=== PATIENT | female | born 1985 | race Caucasian/White ===

== ENCOUNTER 2017-06-18 11:31 | Emergency (ER) | payer MEDICAID ==
[~2017-06-18] VITALS: Ht 154.9 cm; Wt 58.6 kg
[~2017-06-18 11:31] MED LIST: AZIT250T94 PO; IBUP-1542 PO; NPH10OT LEFT EAR; PRENAT PO; PROM6.25 PO
[2017-06-18 12:21] VITALS: Ht 154.9 cm; Wt 58.6 kg
[2017-06-18 14:16] LABS: URINE BLOOD (Dip) POC 3+ (NEGATIVE)
[2017-06-18 14:41] LABS: BASOPHILS % 0.6 % (0.0-2.0); EOSINOPHILS # 0.1 10^3/ul (0.0-0.5); HEMATOCRIT 34.5 % (37.0-47.0); HEMOGLOBIN 12.1 g/dl (12.0-16.0); LYMPHOCYTES # 2.2 10^3/ul (0.8-2.9); LYMPHOCYTES % 33.5 % (15.0-51.0); MEAN CORPUSCULAR HEMOGLOBIN 30.4 pg (29.0-33.0); MEAN CORPUSCULAR HGB CONC 35.1 g/dl (32.0-37.0); MEAN CORPUSCULAR VOLUME 86.7 fl (82.0-101.0); MONOCYTE # 0.3 10^3/ul (0.3-0.9); MONOCYTES % 4.8 % (0.0-11.0); NEUTROPHIL # 3.9 10^3/ul (1.6-7.5); NEUTROPHILS % 58.8 % (39.0-77.0); PLATELET COUNT 317 10^3/UL (140-415); RED BLOOD COUNT 3.98 10^6/ul (4.20-5.40); RED CELL DISTRIBUTION WIDTH 11.9 % (11.5-14.5); WHITE BLOOD COUNT 6.7 10^3/ul (4.8-10.8)
[2017-06-18 14:48] LABS: ADD UMIC YES; UR ASCORBIC ACID NEGATIVE (NEGATIVE); UR BILIRUBIN (Dip) NEGATIVE (NEGATIVE); UR BLOOD (Dip) 3+ mg/dL (NEGATIVE); UR CLARITY CLEAR (CLEAR); UR COLOR STRAW (YELLOW); UR GLUCOSE (Dip) NEGATIVE (NEGATIVE); UR KETONES (Dip) NEGATIVE (NEGATIVE); UR LEUKOCYTE ESTERASE (Dip) NEGATIVE Leu/ul (NEGATIVE); UR NITRITE (Dip) NEGATIVE (NEGATIVE); UR RBC 1 /HPF (0-5); UR SPECIFIC GRAVITY (Dip) 1.005 (1.003-1.030); UR TOTAL PROTEIN (Dip) NEGATIVE (NEGATIVE); UR UROBILINOGEN (Dip) NEGATIVE (NEGATIVE)
--- NOTE | 2017-06-18 15:01 | RADRPT ---
PROCEDURE: OB Ultrasound. CLINICAL INDICATION: Positive test. Vaginal bleeding. TECHNIQUE: Ultrasound of the pelvis was performed with transabdominal and transvaginal sonography in the axial and sagittal planes. COMPARISON: No prior study is available for comparison. FINDINGS: There is a single intrauterine gestational sac. pole is visualized with no heart motion seen. Yolk sac is visualized but probably enlarged. Mean sac diameter is 1.62 cm. Menstrual age by ultrasound dates is 6 weeks 0 days. This indicates an expected date of delivery of 02/11/2018. The right ovary appears normal measuring 2.8 x 1.0 x 2.3 cm. The left ovary appears normal measuring 4.2 x 2.8 x 2.1 cm. Color Doppler and pulsed Doppler sonography demonstrate normal flow to the ovaries. There is no other pelvic mass or free fluid. IMPRESSION: 1. Single intrauterine gestation with no heart motion visualized. This may be due to early ge stational age or failed . Follow-up ultrasound in 10 days is advised. 2. Menstrual age by ultrasound dates is 6 weeks 0 days. RPTAT: QQ .Munir Nicole MD, MD Date Time Electronically viewed and signed by .Munir Nicole MD, on 06/18/2017 15:01 .R/
--- NOTE | 2017-06-18 17:03 | ERD ---
ER Documentation Chief Complaint Chief Complaint 7 wks preg vag bleed; pelvic & back pain starting yesterday HPI This is a 31-year-old female presents to the ER with vaginal bleeding that started today. Patient is also complaining of pelvic and back pain. Patient is currently 7 weeks . Patient is only using panty liners as bleeding is very light. Denies any fevers or chills. She denies any urinary frequency or dysuria. ROS 12 point review of systems was done, all negative except per HPI.. Medications Home Meds Active Scripts Ibuprofen* (Motrin*) 600 Mg Tab, 600 MG PO Q6H Y for PAIN, #14 TAB Prov:MANUEL SHAW MD 09/09/15 Promethazine w/Codeine* (Phenergan w/Codeine* Syrup) 5 Ml Syrup, 5 ML PO Q4H Y for COUGH for 5 Days, ML 6 oz Prov:MANUEL SHAW MD 09/09/15 Azithromycin* (Zithromax*) 250 Mg Tablet, 250 MG PO .ZPACK DIRECTED, #6 TAB TAKE 500 MG (2 TABS) THE FIRST DAY THEN 250 MG (1 TAB) DAYS 2-5 Prov:MANUEL SHAW MD 09/09/15 Neomycin/Polymyxin/Hydrocort* (Cortisporin* Otic) 10 Ml Susp, 4 DROP LEFT EAR QID for 7 Days, EA Prov:SANTIAGO GAR DRIVER 08/04/15 Reported Medications Multivit/Min/Fol Ac/Iron/Pren* ( S*) 1 Tab Tab, 1 TAB PO DAILY, TAB 06/22/14 Allergies Allergies: Coded Allergies: No Known Allergy (Verified , 08/04/15) PMhx/Soc Medical and Surgical Hx: pt denies Medical Hx, pt denies Surgical Hx Hx Respiratory Disorders: Yes (asthma) Hx Alcohol Use: No Hx Substance Use: No Hx Tobacco Use: No Smoking Status: Never smoker Physical Exam Vitals Vital Signs Date Time Temp Pulse Resp B/P Pulse Ox O2 Delivery O2 Flow Rate FiO2 06/18/17 12:21 97.7 58 18 155/55 100 Physical Exam GENERAL: The patient is well developed and appropriate for usual state of health , in no apparent distress. HEENT: Atraumatic. Conjunctivae are pink. Pupils equal, round, and reactive to light. Extraocular muscles are grossly intact. Bilateral tympanic membranes are clear with no evidence of erythema, effusion or dulling of the light reflex. The oropharynx is clear with no erythema or exudates. NECK: C-spine is soft and supple. There is no cervical lymphadenopathy. CHEST: Clear to auscultation bilaterally. There are no rales, wheezes or rhonchi. HEART: Regular rate and rhythm. No murmurs, clicks, rubs or gallops. ABDOMEN: Soft, nontender and nondistended. Good bowel sounds. No rebound or guarding. No gross peritonitis. No gross organomegaly or masses. No Forrest sign or McBurney point tenderness. BACK: No midline or flank tenderness. EXTREMITIES: Equal pulses bilaterally. There is no peripheral clubbing, cyanosis or edema. No focal swelling or erythema. Full range of motion. Grossly neurovascularly intact. NEURO: Alert and oriented. Cranial nerves II through XII are intact. Motor strength in all 4 extremities with 5/5 strength. Sensation grossly intact. Normal speech and gait. SKIN: There is no apparent rash or petechia. The skin is warm and dry. Result Diagram: 06/18/17 1417 Results 24 hrs Laboratory Tests Test 06/18/17 14:16 06/18/17 14:17 Bedside Urine pH (LAB) 5.0 Bedside Urine Protein (LAB) Negative Bedside Urine Glucose (UA) Negative Bedside Urine Ketones (LAB) Negative Bedside Urine Blood 3+ Bedside Urine Nitrite (LAB) Negative Bedside Urine Leukocyte Esterase (L Negative White Blood Count 6.710^3/ul Red Blood Count 3.9810^6/ul Hemoglobin 12.1g/dl Hematocrit 34.5% Mean Corpuscular Volume 86.7fl Mean Corpuscular Hemoglobin 30.4pg Mean Corpuscular Hemoglobin Concent 35.1g/dl Red Cell Distribution Width 11.9% Platelet Count 08632^3/UL Mean Platelet Volume 9.0fl Neutrophils % 58.8% Lymphocytes % 33.5% Monocytes % 4.8% Eosinophils % 2.0% Basophils % 0.6% Nucleated Red Blood Cells % 0.0/100WBC Neutrophils # 3.910^3/ul Lymphocytes # 2.210^3/ul Monocytes # 0.310^3/ul Eosinophils # 0.110^3/ul Basophils # 0.010^3/ul Nucleated Red Blood Cells # 0.010^3/ul Urine Color STRAW Urine Clarity CLEAR Urine pH 6.0 Urine Specific Triangle 1.005 Urine Ketones NEGATIVEmg/dL Urine Nitrite NEGATIVEmg/dL Urine Bilirubin NEGATIVEmg/dL Urine Urobilinogen NEGATIVEmg/dL Urine Leukocyte Esterase NEGATIVELeu/ul Urine Microscopic RBC 1/HPF Urine Microscopic WBC 2/HPF Urine Hemoglobin 3+mg/dL Urine Glucose NEGATIVEmg/dL Urine Total Protein NEGATIVEmg/dl Beta HCG, Quantitative 3575.8mIU/ml Procedures/MDM Differential diagnosis: Threatened , missed , incomplete , ectopic , molar , UTI, pyelonephritis. Patient at this time may be having a threatened , there is an intrauterine however there is no heart tones. It may be too early to see them, versus failed . Patient is hemodynamically stable and afebrile and well-appearing. Patient needs to follow-up with her [facility] soon as possible and will return to ER sooner if symptoms worsen. My medical decision making was shared with the patient she understands and agrees with plan. Departure Diagnosis: Primary Impression: Threatened Condition: Stable Patient Instructions: Possible Miscarriage (Threatened ) Additional Instructions: Call your primary care doctor TOMORROW for an appointment during the next 1-2 days.See the doctor sooner or return here if your condition worsens before your appointment time. CASIMIRO WATT Jun 18, 2017 17:03
[2017-06-19] MEDS ORDERED: HYDR-906 PO (21:53)
[2017-06-19] MEDS ORDERED: ACET500C5 PO (21:53)
== END 2017-06-18 15:51 | disposition home or self-care (01) ==
LOC: FTE 11:31
DX: O20.0 Threatened abortion (principal); O99.511 Diseases of the respiratory system complicating pregnancy, first trimester; J45.909 Unspecified asthma, uncomplicated
CPT/HCPCS: 36415; 76801; 76817; 81001; 84702; 85025; 86900; 86901; Z7502; 81003

== ENCOUNTER 2017-06-19 18:41 | Emergency (ER) | payer MEDICAID ==
[~2017-06-19] VITALS: Ht 152.4 cm; Wt 58.6 kg
[2017-06-19 18:44] VITALS: Ht 152.4 cm; Wt 58.6 kg
[2017-06-19] MEDS ORDERED: ACETAMINOPHEN 500 MG TAB PO STA (19:34)
[2017-06-19 20:09] LABS: BASOPHIL # 0.1 10^3/ul (0.0-0.1); BASOPHILS % 0.5 % (0.0-2.0); EOSINOPHILS # 0.1 10^3/ul (0.0-0.5); EOSINOPHILS % 1.1 % (0.0-7.0); HEMATOCRIT 34.3 % (37.0-47.0); HEMOGLOBIN 12.4 g/dl (12.0-16.0); LYMPHOCYTES # 3.1 10^3/ul (0.8-2.9); LYMPHOCYTES % 29.5 % (15.0-51.0); MEAN CORPUSCULAR HEMOGLOBIN 30.4 pg (29.0-33.0); MEAN CORPUSCULAR HGB CONC 36.2 g/dl (32.0-37.0); MEAN CORPUSCULAR VOLUME 84.1 fl (82.0-101.0); MONOCYTE # 0.5 10^3/ul (0.3-0.9); NEUTROPHIL # 6.7 10^3/ul (1.6-7.5); NEUTROPHILS % 63.5 % (39.0-77.0); PLATELET COUNT 338 10^3/UL (140-415); RED BLOOD COUNT 4.08 10^6/ul (4.20-5.40); RED CELL DISTRIBUTION WIDTH 11.7 % (11.5-14.5); WHITE BLOOD COUNT 10.5 10^3/ul (4.8-10.8)
[2017-06-19 20:10] LABS: ADD UMIC YES; UR ASCORBIC ACID NEGATIVE (NEGATIVE); UR BILIRUBIN (Dip) NEGATIVE (NEGATIVE); UR BLOOD (Dip) 2+ mg/dL (NEGATIVE); UR CLARITY CLEAR (CLEAR); UR COLOR YELLOW (YELLOW); UR GLUCOSE (Dip) NEGATIVE (NEGATIVE); UR KETONES (Dip) NEGATIVE (NEGATIVE); UR LEUKOCYTE ESTERASE (Dip) NEGATIVE Leu/ul (NEGATIVE); UR NITRITE (Dip) NEGATIVE (NEGATIVE); UR RBC 13 /HPF (0-5); UR SPECIFIC GRAVITY (Dip) 1.006 (1.003-1.030); UR TOTAL PROTEIN (Dip) NEGATIVE (NEGATIVE); UR UROBILINOGEN (Dip) NEGATIVE (NEGATIVE)
--- NOTE | 2017-06-19 20:30 | RADRPT ---
PROCEDURE: OB Ultrasound. CLINICAL INDICATION: Positive test. Vaginal bleeding. TECHNIQUE: Ultrasound of the pelvis was performed with transabdominal and transvaginal sonography in the axial and sagittal planes. COMPARISON: 06/18/2017 which demonstrated a single intrauterine gestation with no heart octavio on. FINDINGS: Previously noted intrauterine gestational sac is no longer present. This indicates interval spontane ous . The uterus appears normal measuring 9.6 x 4.6 x 6.3 cm. Endometrial thickness is 15.6 mm. There is h eterogeneity of the endometrium with a small region of vascularity in the fundal region. The right ovary appears normal measuring 2.9 x 1.5 x 2.4 cm. The left ovary appears normal measuring 3.7 x 2.7 x 2.1 cm. Color Doppler and pulsed Doppler sonography demonstrate normal flow to the ovaries. There is no other pelvic mass or free fluid. IMPRESSION: 1. Previously noted intrauterine gestational sac is no longer present. This indicates interval spon taneous . 2. Endometrial thickness is 15.6 mm and there is heterogeneity with a small region of vascularity. This may indicate a small region of retained products of conception. Clinical correlation and follow up advised. 3. Otherwise unremarkable study. RPTAT: QQ .Munir Nicole MD, MD Date Time Electronically viewed and signed by .Munir Nicole MD, on 06/19/2017 20:30 .R/
--- NOTE | 2017-06-19 20:37 | ERD ---
ER Documentation Chief Complaint Chief Complaint c/o VB x 2 days. (+) preg x 6 wks. HPI This is a 31-year-old female who presents the emergency department today complaining of vaginal bleeding and cramping and passing clots. Patient states that she was seen here yesterday but did not take any medication for the pain because she was told "there was nothing that she could take". States she is probably 6 weeks . Denies any fevers or chills, dysuria. States she is bleeding more than yesterday. States she has some back pain. ROS All systems reviewed and are negative except as per history of present illness. Medications Home Meds Active Scripts Acetaminophen* (Tylophen*) 500 Mg Capsule, 1 CAP PO Q6H Y for PAIN AND OR ELEVATED TEMP, #30 CAP Prov:SAMIRA OLIVEIRA PA-C 06/19/17 Hydrocodone/Acetaminophen (Esmond 5-325 Tablet) 1 Each Tablet, 1 TAB PO Q6H Y for PAIN, #10 TAB Prov:SAMIRA OLIVEIRA PA-C 06/19/17 Ibuprofen* (Motrin*) 600 Mg Tab, 600 MG PO Q6H Y for PAIN, #14 TAB Prov:MANUEL SHAW MD 09/09/15 Promethazine w/Codeine* (Phenergan w/Codeine* Syrup) 5 Ml Syrup, 5 ML PO Q4H Y for COUGH for 5 Days, ML 6 oz Prov:MANUEL SHAW MD 09/09/15 Azithromycin* (Zithromax*) 250 Mg Tablet, 250 MG PO .ZPACK DIRECTED, #6 TAB TAKE 500 MG (2 TABS) THE FIRST DAY THEN 250 MG (1 TAB) DAYS 2-5 Prov:MANUEL SHAW MD 09/09/15 Neomycin/Polymyxin/Hydrocort* (Cortisporin* Otic) 10 Ml Susp, 4 DROP LEFT EAR QID for 7 Days, EA Prov:SANTIAGO GAR SEXTON HELPER 08/04/15 Reported Medications Multivit/Min/Fol Ac/Iron/Pren* ( S*) 1 Tab Tab, 1 TAB PO DAILY, TAB 06/22/14 Allergies Allergies: Coded Allergies: No Known Allergy (Verified , 06/19/17) PMhx/Soc Medical and Surgical Hx: pt denies Medical Hx, pt denies Surgical Hx Hx Respiratory Disorders: Yes (asthma) Hx Alcohol Use: No Hx Substance Use: No Hx Tobacco Use: No Smoking Status: Never smoker Physical Exam Vitals Vital Signs Date Time Temp Pulse Resp B/P Pulse Ox O2 Delivery O2 Flow Rate FiO2 06/19/17 18:44 98.6 77 18 112/65 100 Physical Exam Const: NAD Head: Atraumatic Eyes: Normal Conjunctiva ENT: Normal External Ears, Nose and Mouth. Neck: Full range of motion..~ No meningismus. Resp: Clear to auscultation bilaterally Cardio: Regular rate and rhythm, no murmurs Abd: Soft,pelvic tenderness, non distended. Normal bowel sounds. No tenderness at McBurneys : Pelvic exam with evidence of cervix that is starting to close however still slightly open and passing blood and clots. Skin: No petechiae or rashes Back: No midline or flank tenderness Ext: No cyanosis, or edema Neur: Awake and alert Psych: Normal Mood and Affect Result Diagram: 06/19/171944 Results 24 hrs Laboratory Tests Test 06/19/17 19:45 White Blood Count 10.510^3/ul Red Blood Count 4.0810^6/ul Hemoglobin 12.4g/dl Hematocrit 34.3% Mean Corpuscular Volume 84.1fl Mean Corpuscular Hemoglobin 30.4pg Mean Corpuscular Hemoglobin Concent 36.2g/dl Red Cell Distribution Width 11.7% Platelet Count 99801^3/UL Mean Platelet Volume 9.0fl Neutrophils % 63.5% Lymphocytes % 29.5% Monocytes % 5.0% Eosinophils % 1.1% Basophils % 0.5% Nucleated Red Blood Cells % 0.0/100WBC Neutrophils # 6.710^3/ul Lymphocytes # 3.110^3/ul Monocytes # 0.510^3/ul Eosinophils # 0.110^3/ul Basophils # 0.110^3/ul Nucleated Red Blood Cells # 0.010^3/ul Urine Color YELLOW Urine Clarity CLEAR Urine pH 6.0 Urine Specific [place] 1.006 Urine Ketones NEGATIVEmg/dL Urine Nitrite NEGATIVEmg/dL Urine Bilirubin NEGATIVEmg/dL Urine Urobilinogen NEGATIVEmg/dL Urine Leukocyte Esterase NEGATIVELeu/ul Urine Microscopic RBC 13/HPF Urine Microscopic WBC 0/HPF Urine Hemoglobin 2+mg/dL Urine Glucose NEGATIVEmg/dL Urine Total Protein NEGATIVEmg/dl Beta HCG, Quantitative 1987.9mIU/ml Current Medications Medications (Trade) Dose Ordered Sig/Marcos Route PRN Reason Start Time Stop Time Status Last Admin Dose Admin Acetaminophen (Tylenol Tab) 500 mg ONCE STAT PO 06/19/17 19:34 06/19/17 19:36 DC 06/19/17 19:40 DIAGNOSTIC IMAGING REPORT Patient: DANIELLE BAXTER : 1985 Age: 31 Sex: F MR #: [id number] DOS: 06/19/17 193 Ordering MD: SAMIRA OLIVEIRA PA-C Location: [facility] Room/Bed: PROCEDURE: OB Ultrasound. CLINICAL INDICATION: Positive test. Vaginal bleeding. TECHNIQUE: Ultrasound of the pelvis was performed with transabdominal and transvaginal sonography in the axial and sagittal planes. COMPARISON: 06/18/2017 which demonstrated a single intrauterine gestation with no heart motion. FINDINGS: Previously noted intrauterine gestational sac is no longer present. This indicates interval spontaneous . The uterus appears normal measuring 9.6 x 4.6 x 6.3 cm. Endometrial thickness is 15.6 mm. There is heterogeneity of the endometrium with a small region of vascularity in the fundal region. The right ovary appears normal measuring 2.9 x 1.5 x 2.4 cm. The left ovary appears normal measuring 3.7 x 2.7 x 2.1 cm. Color Doppler and pulsed Doppler sonography demonstrate normal flow to the ovaries. There is no other pelvic mass or free fluid. IMPRESSION: 1. Previously noted intrauterine gestational sac is no longer present. This indicates interval spontaneous . 2. Endometrial thickness is 15.6 mm and there is heterogeneity with a small region of vascularity. This may indicate a small region of retained products of conception. Clinical correlation and follow up advised. 3. Otherwise unremarkable study. RPTAT: QQ .Manuel Nicole MD, Date Time Electronically viewed and signed by .Maneul Nicole MD, on 06/19/2017 20:30 .R/ CC: SAMIRA OLIVEIRA PA-C Procedures/MDM This is a 31-year-old female who presents to the emergency department today complaining of vaginal bleeding for the past 2 days patient states she is approximately 6 weeks . Patient was seen here yesterday in the emergency department for the same complaint. Upon review of patient's medical records patient had a complete OB workup done yesterday that showed a single intrauterine gestation with no heart motion that was concerning for failed . Today given patient's complaints increased vaginal bleeding and cramping I did repeat laboratory work and an ultrasound Laboratory work shows no elevated white blood cell count. Her hemoglobin is within normal limits. Platelets are within normal limits. UA is negative for infection. There are 13 microscopic red blood cells. Beta quant hCG 1987.9 Ultrasound today shows previously noted intrauterine gestational sac is no longer present. This indicates interval spontaneous . There is endometrial thickness at 15.6 mm and there is a heterogeneity with a small region of vascularity. This may indicate a small region of retained products of conception. There is normal flow to both ovaries. There are no other pelvic mass or free fluid. Patient symptoms at this time is consistent with vaginal bleeding in early and likely failed given patient's gestational sac is no longer present and her beta quant is falling. I did place a call to the laborist , Dr. Price who feels that patient is stable for discharge and outpatient management as I explained to her that the bleeding has slowed down significantly and I did remove several clots. Patient reported feeling significantly better. Patient is afebrile and otherwise well-appearing. I have low suspicion for ectopic , tubo ovarian abscess, ovarian torsion. I have explained the results to the patient. She was given Tylenol here in the emergency department. She will be given a perception for Esmond and Tylenol for home she was instructed to follow-up with her clinic to have her beta quant levels followed. I have explained her that she is going to continue to have some vaginal bleeding. At this time the patient is stable for discharge and outpatient management. Patient should follow up with their PCP in the next 1-2 days. They may return to the emergency department sooner for any persistent or worsening of symptoms. Patient understood and agreed with the plan. Departure Diagnosis: Primary Impression: Vaginal bleeding in patient at less than 20 weeks gestation Condition: SAMIRA Pfeiffer PA-C Jun 19, 2017 20:37
[2017-06-19] MEDS ORDERED: HYDR-906 PO (21:53)
[2017-06-19] MEDS ORDERED: ACET500C5 PO (21:53)
[2017-06-19 22:04] VITALS: BP 121/68; PULSE 87; RESP 20
== END 2017-06-19 22:05 | disposition home or self-care (01) ==
LOC: FTE 18:41
DX: O20.9 Hemorrhage in early pregnancy, unspecified (principal); O99.511 Diseases of the respiratory system complicating pregnancy, first trimester; J45.909 Unspecified asthma, uncomplicated; R10.2 Pelvic and perineal pain; Z3A.01 Less than 8 weeks gestation of pregnancy
CPT/HCPCS: 36415; 76801; 76817; 81001; 84702; 85025; Z7502; Z7610